=== PATIENT | female | born 1995 | race Two or more races ===

== ENCOUNTER 2017-07-20 01:32 | Emergency (ER) | payer SELFPAY ==
[~2017-07-20] VITALS: Ht 177.8 cm; Wt 70.0 kg
[2017-07-20 01:33] VITALS: BP 119/81
== END 2017-07-20 01:48 | disposition left against medical advice (07) ==
LOC: ED 01:34
DX: Z53.21 Procedure and treatment not carried out due to patient leaving prior to being seen by health care provider (principal)